=== PATIENT | male | born 1995 | race Caucasian/White ===

== ENCOUNTER 2019-03-12 17:59 | Emergency (ER) | payer SELFPAY ==
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
[2019-03-12] MEDS ORDERED: Diphtheria,Pertussis(Acell),Tetanus Vaccine 0.5 ML Syringe IM ONE (19:03)
[2019-03-12] MEDS ORDERED: Ketorolac 30 MG/ML SDV IVPUSH ONE (19:03)
--- NOTE | 2019-03-12 19:56 | CR ---
Indication: Trauma and pain Technique: Left shoulder 3 views. Comparison: None Findings: Bones: Alignment is normal. No fractures or bone lesions. Joint spaces: Unremarkable. Soft tissues: Unremarkable. Impression: No sign of acute injury. Dictated by Chicho Price MD @ Mar 12 2019 7:55PM Signed by Dr. Chicho Price @ Mar 12 2019 7:56PM
--- NOTE | 2019-03-12 19:59 | CR ---
INDICATION: Trauma TECHNIQUE: Chest 1 view COMPARISON: None FINDINGS: Cardiovascular and mediastinum: Heart size and vasculature are normal in caliber and appearance. Lungs and pleural spaces: Lungs are clear. No sign of infiltrate or mass. No sign of pleural effusion. No pneumothorax. Bones and soft tissues: No significant findings. IMPRESSION: No acute or significant findings. Dictated by Chicho Price MD @ Mar 12 2019 7:57PM Signed by Dr. Chicho Price @ Mar 12 2019 7:57PM
== END 2019-03-12 20:21 | disposition home or self-care (01) ==
LOC: MW.ED 17:59
DX: S81.811A Laceration without foreign body, right lower leg, initial encounter (principal); S20.312A Abrasion of left front wall of thorax, initial encounter; S50.312A Abrasion of left elbow, initial encounter; V29.49XA Motorcycle driver injured in collision with other motor vehicles in traffic accident, initial encounter; Y92.410 Unspecified street and highway as the place of occurrence of the external cause
CPT/HCPCS: 71045; 73030; 81001; 96374; 99284; J1885; 99282

== ENCOUNTER 2021-01-08 15:50 | Emergency (ER) | payer BC, OTHER ==
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
--- NOTE | 2021-01-08 16:52 | CR ---
INDICATION: Possible glass foreign body. COMPARISON: None available. TECHNIQUE: AP and lateral views of the right forearm were obtained for a total of two views. FINDINGS: There is no sign of fracture or dislocation. The visualized elbow and wrist are normal in appearance. There is a faintly radiopaque rectangular structure located in the superficial soft tissues of the dorsal ulnar distal forearm, raising the possibility of an imbedded piece of glass. Glass is usually only mildly radiopaque, and this could be a piece of safety glass. Recommend correlation with the clinical exam. This measures up to 6 millimeters in length and 2 millimeters in thickness. The soft tissue planes elsewhere are preserved. There is no additional radiopaque foreign body. IMPRESSION: Possible 6.2 millimeter rectangular mildly radiopaque foreign body in the superficial soft tissues of the dorsal ulnar distal forearm. This could be an embedded piece of safety glass. No sign of any osseous abnormality. Dictated by Kian Benjamin MD @ 01/08/2021 4:51:[address] Kian Benjamin @ Jan 08 2021 4:51PM
== END 2021-01-08 17:31 | disposition home or self-care (01) ==
LOC: MW.ED 15:50
DX: S50.851A Superficial foreign body of right forearm, initial encounter (principal); W45.8XXA Other foreign body or object entering through skin, initial encounter
CPT/HCPCS: 73090-26-RT; 73090-RT; 99282; 99283-25

== ENCOUNTER 2021-06-08 09:33 | Emergency (ER) | payer BC, OTHER ==
[2021-06-08] MEDS ORDERED: Ketorolac 60 MG/2 ML SDV ONE (10:22)
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
[2021-06-08] MEDS ORDERED: Ketorolac 60 MG/2 ML SDV IM ONE (10:47)
--- NOTE | 2021-06-08 11:13 | CR ---
Indication: Trauma with pain. Technique: Two views left hand. Comparison: None. Findings: Two views of the left hand reveal an acute appearing avulsion type fracture involving the base of the left 5th metacarpal bone. No other fracture or osseous abnormality is seen. Impression: Acute appearing fracture involving the base of the left 5th metacarpal bone. Dictated by Chicho Heath MD @ 06/08/2021 11:11:04 AM (Electronically Signed)
== END 2021-06-08 11:51 | disposition home or self-care (01) ==
LOC: MW.ED 09:33
DX: S62.317A Displaced fracture of base of fifth metacarpal bone, left hand, initial encounter for closed fracture (principal); W22.09XA Striking against other stationary object, initial encounter
CPT/HCPCS: 29125; 73120; 96372; 99283; J1885